=== PATIENT | female | born 1970 | race Caucasian/White ===

== ENCOUNTER 2017-01-25 10:47 | Emergency (ER) | payer OTHER ==
[~2017-01-25] VITALS: Ht 154.9 cm; Wt 86.0 kg
[2017-01-25 10:48] VITALS: BP 145/68; PULSE 84; RESP 18; TEMP 98.7; O2SAT 97
[2017-01-25] MEDS ORDERED: SODIUM CHLORIDE 0.9% FLUSH 10 ML FLUSH IV FLUSH PRN (12:30)
[2017-01-25 12:59] LABS: AUTOMATED NEUTROPHIL # 5.3 TH/MM3 (1.8-7.7); BASOPHIL % 0.3 % (0.0-2.0); EOSINOPHIL % 0.4 % (0.0-4.0); HEMATOCRIT 40.5 % (35.0-46.0); HEMO FLAGS DIFF FINAL; LYMPH % 16.2 % (9.0-44.0); LYMPHOCYTE # 1.1 TH/MM3 (1.0-4.8); MEAN CELL VOLUME 90.8 FL (80.0-100.0); MEAN CORPUSCULAR HEMOGLOBIN 31.1 PG (27.0-34.0); MEAN CORPUSCULAR HGB CONC 34.2 % (32.0-36.0); MONO % 6.5 % (0.0-8.0); NEUT % 76.6 % (16.0-70.0); PLATELET COUNT 265 TH/MM3 (150-450); RED BLOOD COUNT 4.46 MIL/MM3 (4.00-5.30); RED CELL DISTRIBUTION WIDTH 13.2 % (11.6-17.2)
[2017-01-25 13:03] LABS: BLOOD, URINE NEG (NEG); COMMENT (UR) CULT NOT INDICATED; CULTURE IF INDICATED CULT NOT INDICATED; GLUCOSE,URINE NEG (NEG); KETONE, URINE NEG (NEG); MUCUS URINE FEW /lpf (OCC); NITRITE,URINE NEG (NEG); SQUAMOUS EPITHELIAL CELL URINE <1 /hpf (0-5); URINE COLOR YELLOW (YELLW/STRAW)
[2017-01-25 13:09] LABS: APTT (PATIENT) 26.1 SEC (24.3-30.1); PROTHROMBIN TIME - PATIENT 10.6 SEC (9.8-11.6)
[2017-01-25 13:17] LABS: ANION GAP 9 MEQ/L (5-15); AST (GOT) 29 U/L (15-37); BICARBONATE 22.3 MEQ/L (21.0-32.0); BLOOD UREA NITROGEN 14 MG/DL (7-18); CHLORIDE 107 MEQ/L (98-107); GLOMERULAR FILTRATION RATE 91 ML/MIN (>89); POTASSIUM 4.2 MEQ/L (3.5-5.1); SODIUM (NA) 138 MEQ/L (136-145)
[2017-01-25 13:18] LABS: ALT (GPT) 51 U/L (10-53)
[2017-01-25 13:20] LABS: ALKALINE PHOSPHATASE 60 U/L (45-117); TOTAL BILIRUBIN ADULT 0.3 MG/DL (0.2-1.0)
[2017-01-25] MEDS ORDERED: IOHEXOL 350 MG/ML 10 ML VIAL (for RAD DIAG) IVCONTRAST ONE (13:20)
--- NOTE | 2017-01-25 13:24 | PD ---
HPI Chief Complaint: Abdominal Pain Time Seen by Provider: 12:10 Travel History International Travel<30 days: No Contact w/Intl Traveler<30days: No Traveled to known affect area: No History of Present Illness HPI 46yo F with PMH of diverticulitis s/p colon resection in 2014, hysterectomy presents to the ED with c/o left lower abdominal pain. States it is intermittent, nonradiating and sharp. No exacerbation or alleviating factors. Associated with nausea. Denies any fever, chest pain, sob, vomiting, dysuria, hematuria, diarrhea or black stool. Pt had bowel movement today and it was hard. PFSH Past Medical History Asthma: Yes Diminished Hearing: No Diverticulitis: Yes Tetanus Vaccination: Unknown Influenza Vaccination: No ?: Not Past Surgical History Abdominal Surgery: Yes (colon resection ) Hysterectomy: Yes Social History Alcohol Use: No Tobacco Use: No Substance Use: No Allergies-Medications (Allergen,Severity, Reaction): Coded Allergies: No Known Allergies (Unverified , 01/25/17) Reported Meds & Prescriptions Reported Meds & Active Scripts Active No Active Prescriptions or Reported Medications Review of Systems Except as stated in HPI: all other systems reviewed are Neg Physical Exam Narrative GENERAL: 46yo F in mild distress. SKIN: Focused skin assessment warm/dry. HEAD: Atraumatic. Normocephalic. CARDIOVASCULAR: Regular rate and rhythm. No murmur appreciated. RESPIRATORY: No accessory muscle use. Clear to auscultation. Breath sounds equal bilaterally. GASTROINTESTINAL: Abdomen soft, +TTP LLQ. No rebound tenderness or guarding. MUSCULOSKELETAL: No obvious deformities. No clubbing. No cyanosis. No edema. NEUROLOGICAL: Awake and alert. No obvious cranial nerve deficits. Motor grossly within normal limits. Normal speech. PSYCHIATRIC: Appropriate mood and affect; insight and judgment normal. Data Data Last Documented VS Vital Signs Date Time Temp Pulse Resp B/P (MAP) Pulse Ox O2 Delivery O2 Flow Rate FiO2 01/25/17 14:31 74 18 117/60 (79) 97 Room Air 01/25/17 10:48 98.7 Orders Orders Complete Blood Count With Diff (01/25/17 12:19) Comprehensive Metabolic Panel (01/25/17 12:19) Lipase (01/25/17 12:19) Prothrombin Time / Inr (Pt) (01/25/17 12:19) Act Partial Throm Time (Ptt) (01/25/17 12:19) Urinalysis - C+S If Indicated (01/25/17 12:19) Ct Abd/Pel W Iv Contrast(Rout) (01/25/17 12:19) Iv Access Insert/Monitor (01/25/17 12:19) Ecg Monitoring (01/25/17 12:19) Oximetry (01/25/17 12:19) Sodium Chloride 0.9% Flush (Ns Flush) (01/25/17 12:30) Ed Urine Pregnancytest Poc (01/25/17 12:20) Iohexol 350 Inj (Omnipaque 350 Inj) (01/25/17 13:20) Morphine Inj (Morphine Inj) (01/25/17 14:15) Ondansetron Inj (Zofran Inj) (01/25/17 14:15) Labs Laboratory Tests Test 01/25/17 12:25 01/25/17 12:28 Urine Color YELLOW Urine Turbidity CLEAR Urine pH 6.0 Urine Specific [place] 1.017 Urine Protein NEG mg/dL Urine Glucose (UA) NEG mg/dL Urine Ketones NEG mg/dL Urine Occult Blood NEG Urine Nitrite NEG Urine Bilirubin NEG Urine Urobilinogen LESS THAN 2.0 MG/DL Urine Leukocyte Esterase NEG Urine RBC LESS THAN 1 /hpf Urine WBC LESS THAN 1 /hpf Urine Squamous Epithelial Cells <1 /hpf Urine Mucus FEW /lpf Microscopic Urinalysis Comment CULT NOT INDICATED White Blood Count 7.0 TH/MM3 Red Blood Count 4.46 MIL/MM3 Hemoglobin 13.8 GM/DL Hematocrit 40.5 % Mean Corpuscular Volume 90.8 FL Mean Corpuscular Hemoglobin 31.1 PG Mean Corpuscular Hemoglobin Concent 34.2 % Red Cell Distribution Width 13.2 % Platelet Count 265 TH/MM3 Mean Platelet Volume 7.6 FL Neutrophils (%) (Auto) 76.6 % Lymphocytes (%) (Auto) 16.2 % Monocytes (%) (Auto) 6.5 % Eosinophils (%) (Auto) 0.4 % Basophils (%) (Auto) 0.3 % Neutrophils # (Auto) 5.3 TH/MM3 Lymphocytes # (Auto) 1.1 TH/MM3 Monocytes # (Auto) 0.5 TH/MM3 Eosinophils # (Auto) 0.0 TH/MM3 Basophils # (Auto) 0.0 TH/MM3 CBC Comment DIFF FINAL Differential Comment Prothrombin Time 10.6 SEC Prothromb Time International Ratio 1.0 RATIO Activated Partial Thromboplast Time 26.1 SEC Blood Urea Nitrogen 14 MG/DL Creatinine 0.69 MG/DL Random Glucose 100 MG/DL Total Protein 7.5 GM/DL Albumin 3.9 GM/DL Calcium Level 9.8 MG/DL Alkaline Phosphatase 60 U/L Aspartate Amino Transf (AST/SGOT) 29 U/L Alanine Aminotransferase (ALT/SGPT) 51 U/L Total Bilirubin 0.3 MG/DL Sodium Level 138 MEQ/L Potassium Level 4.2 MEQ/L Chloride Level 107 MEQ/L Carbon Dioxide Level 22.3 MEQ/L Anion Gap 9 MEQ/L Estimat Glomerular Filtration Rate 91 ML/MIN Lipase 230 U/L MDM Medical Decision Making Medical Screen Exam Complete: Yes Emergency Medical Condition: Yes Differential Diagnosis Acute diverticulitis vs. Complicated diverticulitis vs. partial obstruction Narrative Course 46yo F with h/o diverticulitis here with left lower abdominal pain. Urine negative. Labs reviewed, no leukocytosis. CMP unremarkable. Lipase normal. UA showed no leukocyte. Culture not indicated. CT a/p showed fatty infiltration liver. Umbilical hernia containing loops of of small bowel without obstruction. No focal inflammatory changes seen in GI tract. VS stable. Pt given morphine and zofran. Do not see an umbilical hernia on exam. No tenderness periumbilical region. Pt tolerating PO. Return precautions given. Diagnosis Primary Impression: Abdominal pain Qualified Codes: R10.32 - Left lower quadrant pain Patient Instructions: General Instructions Departure Forms: Tests/Procedures Additional Instructions: Please follow up with your primary care physician in 3-7 days. Return to the ED if your symptoms worsen. Med/Other Pt SpecificInfo: Prescription(s) given Scripts Acetaminophen (Tylenol) 325 Mg Tab 650 MG PO Q6H Y for PAIN SCALE 1 TO 4, #20 TAB 0 Refills Prov: Sharonda Bajwa 01/25/17 Disposition: 01 DISCHARGE HOME Condition: Stable BajwaSharonda DO Jan 25, 2017 13:24
--- NOTE | 2017-01-25 13:31 | RADRPT ---
EXAM DATE/TIME: 01/25/2017 13:11 [facility] COMPARISON: No previous studies available for comparison. INDICATIONS : Left lower quadrant pain and nausea x 2 weeks. IV CONTRAST: 85 cc Omnipaque 350 (iohexol) IV ORAL CONTRAST: No oral contrast ingested. RADIATION DOSE: 9.23 CTDIvol (mGy) MEDICAL HISTORY : Diverticulitis. SURGICAL HISTORY : Colon resection. ENCOUNTER: Initial ACUITY: 2 weeks PAIN SCALE: 7/10 LOCATION: Left lower quadrant TECHNIQUE: Volumetric scanning of the abdomen and pelvis was performed. Using automated exposure control and ad justment of the mA and/or kV according to patient size, radiation dose was kept as low as reasonably achievable to obtain optimal diagnostic quality images. DICOM format image data is available electro nically for review and comparison. FINDINGS: LOWER LUNGS: The visualized lower lungs are clear. LIVER: Homogeneous density without lesion. There is fatty infiltration throughout the liver. There is no dil ation of the biliary tree. No calcified gallstones. SPLEEN: Normal size without lesion. PANCREAS: Within normal limits. KIDNEYS: Normal in size and shape. There is no mass, stone or hydronephrosis. ADRENAL GLANDS: Within normal limits. VASCULAR: There is no aortic aneurysm. BOWEL/MESENTERY: The stomach, small bowel, and colon demonstrate no acute abnormality. There is no free intraperitone al air or fluid. No focal inflammatory changes are demonstrated. ABDOMINAL WALL: There is an umbilical hernia along the anterior midline abdomen containing some loops of small bowel. There is no obstruction. RETROPERITONEUM: There is no lymphadenopathy. BLADDER: No wall thickening or mass. REPRODUCTIVE: Within normal limits. INGUINAL: There is no lymphadenopathy or hernia. MUSCULOSKELETAL: Within normal limits for patient age. CONCLUSION: 1. Fatty infiltration liver. 2. Umbilical hernia containing loops of small bowel without obstruction. 3. No focal inflammatory changes are seen involving the GI tract. Alfredo Palomo MD on January 25, 2017 at 13:26 Board Certified Radiologist. This report was verified electronically.
[2017-01-25] MEDS ORDERED: ONDANSETRON HCL 4 MG/2 ML VIAL IV PUSH ONE (14:15)
[2017-01-25] MEDS ORDERED: MORPHINE SULFATE 4 MG/ML INJ IV PUSH ONE (14:15)
[2017-01-25 14:31] VITALS: BP 117/60; PULSE 74; RESP 18; O2SAT 97
[2017-01-25] MEDS ORDERED: TYLE325T PO (14:53)
[2017-01-25 15:51] VITALS: BP 118/82; PULSE 58; RESP 18; O2SAT 95
[2017-01-26] MEDS ORDERED: IBUP-232 PO (16:40)
== END 2017-01-25 19:03 | disposition home or self-care (01) ==
LOC: NEPD 10:47
DX: R10.32 Left lower quadrant pain (principal); R11.0 Nausea; J45.909 Unspecified asthma, uncomplicated; K57.92 Diverticulitis of intestine, part unspecified, without perforation or abscess without bleeding
CPT/HCPCS: 74177; 80053; 81001; 83690; 84703; 85025; 85610; 85730; 96374; 96375; 99285; J2270; J2405; Q9967

== ENCOUNTER 2017-01-26 12:27 | Emergency (ER) | payer OTHER ==
[~2017-01-26] VITALS: Ht 154.9 cm; Wt 88.6 kg
[~2017-01-26 12:27] MED LIST: TYLE325T PO
[2017-01-26 12:55] VITALS: BP 99/66; PULSE 79; RESP 16; TEMP 98.1; O2SAT 97
[2017-01-26] MEDS ORDERED: MORPHINE SULFATE 4 MG/ML INJ IV PUSH ONE (14:30)
[2017-01-26] MEDS ORDERED: ONDANSETRON HCL 4 MG/2 ML VIAL IV PUSH ONE (14:30)
--- NOTE | 2017-01-26 14:39 | PD ---
HPI Chief Complaint: Abdominal Pain Time Seen by Provider: 14:16 Travel History International Travel<30 days: No Contact w/Intl Traveler<30days: No Traveled to known affect area: No History of Present Illness HPI 46yo F who was just seen at [facility] yesterday for left lower abdominal pain presents to the ED today because she said tylenol is not helping. Pt is demanding an ultrasound, stating she had similar pain 6 months ago and went to hospital in [place] and they did a full work up including CT and ultrasound. Pt said she has been having left lower abdominal pain for 2 weeks and it is cramping and sharp. Associated with nausea but no vomiting. Denies any fever. Bowel movement this morning. Denies any vaginal discharge, chest pain, sob, focal weakness or numbness. PFSH Past Medical History Asthma: Yes Diminished Hearing: No Diverticulitis: Yes Respiratory: Yes (asthma) Influenza Vaccination: No ?: Not Past Surgical History Abdominal Surgery: Yes (colon resection ) Hysterectomy: Yes Social History Alcohol Use: No Tobacco Use: No Substance Use: No Allergies-Medications (Allergen,Severity, Reaction): Coded Allergies: No Known Allergies (Unverified , 01/26/17) Reported Meds & Prescriptions Reported Meds & Active Scripts Active Ibuprofen 600 Mg Tab 600 Mg PO Q8H PRN Review of Systems Except as stated in HPI: all other systems reviewed are Neg Physical Exam Narrative GENERAL: 46yo F not in distress. SKIN: Focused skin assessment warm/dry. HEAD: Atraumatic. Normocephalic. EYES: Pupils equal and round. No scleral icterus. No injection or drainage. CARDIOVASCULAR: Regular rate and rhythm. No murmur appreciated. RESPIRATORY: No accessory muscle use. Clear to auscultation. Breath sounds equal bilaterally. GASTROINTESTINAL: Abdomen soft, Mild ttp LLQ. No rebound tenderness or guarding. Nondistended. +BS. PELVIC: Small amount of white vaginal discharge, likely physiologic. No adnexal tenderness bilaterally. MUSCULOSKELETAL: No obvious deformities. No clubbing. No cyanosis. No edema. NEUROLOGICAL: Awake and alert. No obvious cranial nerve deficits. Motor grossly within normal limits. Normal speech. PSYCHIATRIC: Appropriate mood and affect; insight and judgment normal. Data Data Last Documented VS Vital Signs Date Time Temp Pulse Resp B/P (MAP) Pulse Ox O2 Delivery O2 Flow Rate FiO2 01/26/17 12:55 98.1 79 16 99/66 (77) 97 Orders Orders Complete Blood Count With Diff (01/26/17 14:29) Basic Metabolic Panel (Bmp) (01/26/17 14:29) Gc And Chlamydia Pcr (01/26/17 14:29) Wet Prep Profile (01/26/17 14:29) Ondansetron Inj (Zofran Inj) (01/26/17 14:30) Morphine Inj (Morphine Inj) (01/26/17 14:30) Sodium Chlor 0.9% 1000 Ml Inj (Ns 1000 M (01/26/17 14:45) Us Pelvis Comp W Transvaginal (01/26/17 ) Ed Discharge Order (01/26/17 16:41) Labs Laboratory Tests Test 01/26/17 14:45 01/26/17 14:55 White Blood Count 6.0 TH/MM3 Red Blood Count 4.29 MIL/MM3 Hemoglobin 12.8 GM/DL Hematocrit 38.9 % Mean Corpuscular Volume 90.7 FL Mean Corpuscular Hemoglobin 29.7 PG Mean Corpuscular Hemoglobin Concent 32.7 % Red Cell Distribution Width 12.9 % Platelet Count 274 TH/MM3 Mean Platelet Volume 7.3 FL Neutrophils (%) (Auto) 64.7 % Lymphocytes (%) (Auto) 26.8 % Monocytes (%) (Auto) 7.0 % Eosinophils (%) (Auto) 1.1 % Basophils (%) (Auto) 0.4 % Neutrophils # (Auto) 3.9 TH/MM3 Lymphocytes # (Auto) 1.6 TH/MM3 Monocytes # (Auto) 0.4 TH/MM3 Eosinophils # (Auto) 0.1 TH/MM3 Basophils # (Auto) 0.0 TH/MM3 CBC Comment DIFF FINAL Differential Comment Blood Urea Nitrogen 18 MG/DL Creatinine 0.82 MG/DL Random Glucose 92 MG/DL Calcium Level 8.8 MG/DL Sodium Level 138 MEQ/L Potassium Level 4.2 MEQ/L Chloride Level 102 MEQ/L Carbon Dioxide Level 27.7 MEQ/L Anion Gap 8 MEQ/L Estimat Glomerular Filtration Rate 75 ML/MIN Clue Cells (Wet Prep) NONE SEEN Vaginal Trichomonas (Wet Prep) NONE SEEN Vaginal Yeast (Wet Prep) NONE SEEN Chlamydia trachomatis DNA (PCR) NOT DETECTED Neisseria gonorrhoeae DNA (PCR) NOT DETECTED [facility] Medical Decision Making Medical Screen Exam Complete: Yes Emergency Medical Condition: Yes Differential Diagnosis Chronic abdominal pain vs. malingering vs. SPINNER CONTINUOUS pathology Narrative Course 46yo F with left lower abdominal pain. Pt had full work up with labs, UA and CT a/p yesterday that was negative. Pt said it is her ovaries. Pt has had hysterectomy but insists her ovaries are there. Abdominal exam is unremarkable with mild left lower abdominal pain. Pt given morphine 4mg IV which resolved the pain. Labs reviewed and again are reassuring. No leukocytosis. BMP unremarkable. Wet prep negative. US pelvis showed lack of visualization of ovaries and uterus. No adnexal mass or fluid collection observed. Pt has been sleeping comfortably in the ED. However, she became upset upon discharge and charge nurse accompanied me to address any concerns. Pt is unhappy with her care even though she had full work up and has been sleeping comfortably in the ED. Pt has not had any vomiting in the ED and tolerating PO. Advised pt to follow up with GI or [facility] for further evaluation and return if symptoms worsen. Diagnosis Primary Impression: Abdominal pain Qualified Codes: R10.32 - Left lower quadrant pain Referrals: Betzy Marcos MD as needed Left lower abdominal pain, negative work up in ED Patient Instructions: General Instructions Departure Forms: Tests/Procedures Additional Instructions: Please follow up with [facility] or GI clinic for further evaluation of abdominal pain. Return to the ED if symptoms worsen. Med/Other Pt SpecificInfo: Prescription(s) given Scripts Ibuprofen (Ibuprofen) 600 Mg Tab 600 MG PO Q8H Y for PAIN, #20 TAB 0 Refills Prov: Sharonda Bajwa DO 01/26/17 Disposition: 01 DISCHARGE HOME Condition: Stable Sharonda Bajwa DO Jan 26, 2017 14:39
[2017-01-26] MEDS ORDERED: SODIUM CHLOR 0.9% 1000 ML INJ 1,000 ML IV ONE (14:45)
[2017-01-26 14:54] LABS: AUTOMATED NEUTROPHIL # 3.9 TH/MM3 (1.8-7.7); BASOPHIL % 0.4 % (0.0-2.0); EOSINOPHIL # 0.1 TH/MM3 (0-0.4); EOSINOPHIL % 1.1 % (0.0-4.0); HEMATOCRIT 38.9 % (35.0-46.0); HEMO FLAGS DIFF FINAL; LYMPH % 26.8 % (9.0-44.0); LYMPHOCYTE # 1.6 TH/MM3 (1.0-4.8); MEAN CELL VOLUME 90.7 FL (80.0-100.0); MEAN CORPUSCULAR HEMOGLOBIN 29.7 PG (27.0-34.0); MEAN CORPUSCULAR HGB CONC 32.7 % (32.0-36.0); NEUT % 64.7 % (16.0-70.0); PLATELET COUNT 274 TH/MM3 (150-450); RED BLOOD COUNT 4.29 MIL/MM3 (4.00-5.30); RED CELL DISTRIBUTION WIDTH 12.9 % (11.6-17.2)
[2017-01-26 15:03] LABS: POTASSIUM 4.2 MEQ/L (3.5-5.1)
[2017-01-26 15:06] LABS: BICARBONATE 27.7 MEQ/L (21.0-32.0)
--- NOTE | 2017-01-26 15:43 | RADRPT ---
EXAM DATE/TIME: 01/26/2017 15:12 [facility] COMPARISON: CT ABDOMEN & PELVIS W CONTRAST, January 25, 2017, 13:11. INDICATIONS : Left pelvic pain. MEDICAL HISTORY : Diverticulitis. SURGICAL HISTORY : Colon resection. Hysterectomy. ENCOUNTER: Initial ACUITY: 2 weeks PAIN SCORE: 5/10 LOCATION: Bilateral pelvis MEASUREMENTS: UTERUS: Removed ENDOMETRIAL STRIPE: RIGHT OVARY: not seen LEFT OVARY: not seen FINDINGS: UTERUS: Surgically absent. RIGHT OVARY: The ovary is not visualized. No adnexal mass or fluid collection is seen. LEFT OVARY: The ovary is not visualized. No adnexal mass or fluid collection is seen. MISCELLANEOUS: No free fluid. CONCLUSION: 1. Lack of visualization of the ovaries and uterus. No adnexal mass or fluid collection observed. Randy Almodovar Jr., MD on January 26, 2017 at 15:33 Board Certified Radiologist. This report was verified electronically.
[2017-01-26] MEDS ORDERED: IBUP-232 PO (16:40)
[2017-01-26 19:04] LABS: CHLAMYDIA PCR NOT DETECTED (NOT DETECT); NEISSERIA PCR NOT DETECTED (NOT DETECT)
== END 2017-01-26 17:22 | disposition home or self-care (01) ==
LOC: PHED 12:27
DX: R10.32 Left lower quadrant pain (principal)
CPT/HCPCS: 76830; 76856; 80048; 85025; 87210; 87491; 87591; 96361; 96374; 96375; 99285; J2270; J2405; J7030